=== PATIENT | female | born 1990 | race Caucasian/White ===

== ENCOUNTER 2017-05-26 06:56 | Day surgery (SDC) | payer MEDICAID ==
[~2017-05-26] VITALS: Ht 170.2 cm; Wt 107.0 kg
[2017-05-26 06:58] VITALS: BP 134/68
[2017-05-26] MEDS ORDERED: SODIUM CHLORIDE 0.9% 1,000 ML IV ONE (07:12)
[2017-05-26 07:43] LABS: PARTIAL THROMBOPLASTIN TIME 25.2 sec (23.4-31.0); PROTHROMBIN TIME 10.6 sec (9.4-11.6)
[2017-05-26 07:49] LABS: BASOPHILS % 0.3 % (0.0-2.0); EOSINOPHILS % 0.8 % (0.0-5.0); HEMATOCRIT. 38.4 % (36.0-48.0); HEMOGLOBIN. 13.3 g/dL (12.0-16.0); LYMPHOCYTES % 18.6 % (20.0-50.0); MEAN CORPUSCULAR HEMOGLOBIN 29.8 pg (28.0-32.0); MEAN CORPUSCULAR VOLUME 85.8 fL (81.0-99.0); MEAN PLATELET VOLUME 8.2 fl (7.4-10.4); MONOCYTES % 8.9 % (2.0-8.0); NEUTROPHILS % 71.4 % (40.0-76.0); PLATELET 209 x1000/uL (130-400); RED BLOOD CELL COUNT 4.47 mill/uL (4.2-5.4); RED CELL DISTRIBUTION WIDTH 12.6 % (11.6-14.6)
[2017-05-26 07:53] LABS: CARBON DIOXIDE 24 mEq/L (21-32); CHLORIDE 106 mEq/L (98-107)
[2017-05-26 08:04] LABS: B-HCG QUANTITATIVE 38815 mIU/mL (<3)
[2017-05-26] MEDS ORDERED: MAGN400T29 PO (09:06)
[2017-05-26] MEDS ORDERED: INDO50SU RC (09:06)
[2017-05-26] MEDS ORDERED: KETOROLAC 30MG/ML VIAL IV ONE (11:00)
== END 2017-05-26 13:33 | disposition home or self-care (01) ==
LOC: ER 06:56 → EDSTATUS 06:56 → OR 06:57 → ER 08:02 → UNDOADMIN 11:02 → ORIP 11:02 → OR 13:33
PROVIDERS: ATTEND Acupuncturist
DX: O26.872 Cervical shortening, second trimester (principal); O34.32 Maternal care for cervical incompetence, second trimester; N84.1 Polyp of cervix uteri; Z3A.14 14 weeks gestation of pregnancy; Z87.59 Personal history of other complications of pregnancy, childbirth and the puerperium; Z90.49 Acquired absence of other specified parts of digestive tract; Z98.890 Other specified postprocedural states
CPT/HCPCS: 36415; 80053; 84702; 85025; 85610; 85730; 86886; 99285; J7030